=== PATIENT | female | born 1965 | race Caucasian/White ===

== ENCOUNTER 2016-07-07 12:36 | Emergency (ER) | payer OTHER ==
--- NOTE | ~2016-07-07 | CR173 ---
[facility]. [facility] A Service of [facility] RADIOLOGY TEXT RESULTS PATIENT: SUZETTE OROZCO LOCATION: SED : 69 UNIT #: [id number] AGE: [address]: Ene Branch APRN SEX: F ORDER DR: [id number] [address] [address] [id number] MR#: [id number] Acc #: [id number] NAME: SUZETTE OROZCO. : 1965 SEX: F STUDY DATE/TIME: 07/07/2016 12:39 UNIT: SED ROOM: STUDY DESCRIPTION: CR Knee 3 Views Rt Attending Physician: Ene Branch A.P.R.N. Referring Physician: Ene Branch A.P.R.N. Ordering Physician: Ene Diaz A.P.R.N. Primary Care Physician: Sahil Yang M.D. MEDICAL IMAGING REPORT This report is preliminary unless electronic signature is present. EXAM Right knee series dated 07/07/2016 COMPARISON None. HISTORY Right knee pain and swelling for 3 weeks. FINDINGS 3 views of the right knee were obtained. No acute displaced fracture or dislocation. Suspicious mild joint effusion. Spurs are noted in the anterior and superior aspect of the patella. Dictated by... Ligia Nazario M.D. THIS IS AN ELECTRONICALLY VERIFIED REPORT Ligia Nazario M.D. at 07/09/2016 3:01 PM CPR/aa TD: 07/07/2016 13:52 JOB #: [id number] MEDICAL IMAGING REPORT Page 1 of 1
[~2016-07-07 12:36] MED LIST: ALPRAZOLAM PO; BUPROPION XL300 MG PO; CHOLESTEROL PILL; LORTAB 10-3251 EACH; METFORMIN; METFORMIN HCL1000 M2 PO; PERCOCET PO; XANAX1 MG PO; ZANAFLEX4 M1 PO
== END 2016-07-07 13:31 | disposition home or self-care (01) ==
LOC: SED 12:36
DX: M25.461 Effusion, right knee (principal); E11.9 Type 2 diabetes mellitus without complications; J44.9 Chronic obstructive pulmonary disease, unspecified; F41.9 Anxiety disorder, unspecified; F17.210 Nicotine dependence, cigarettes, uncomplicated
CPT/HCPCS: 29530; 73562; 99283